=== PATIENT | female | born 1960 | race Caucasian/White ===

== ENCOUNTER 2024-06-24 21:34 | Emergency (ER) | payer BC ==
[2024-06-24 21:40] VITALS: RESP 18
[2024-06-24] MEDS: HYDROmorphone 1 MG/ML 1 ML SYRINGE IVP STA ×2 (21:45→23:27)
[2024-06-24 22:10] LABS: Basophils % (A) 0 %; Eosinophils # (A) 0.1 k/uL (0-0.7); Eosinophils % (A) 1 %; HCT 33.7 % (34.0-46.0); Hypochromasia Slight; Lymphocytes # (A) 1.4 k/uL (1.0-4.8); Lymphocytes % (A) 18 %; MCH 28.9 pg (25.0-35.0); MCHC 32.6 g/dL (31.0-37.0); MCV 88.6 fL (80.0-100.0); Mean Platelet Volume 7.5; Monocytes # (A) 0.4 k/uL (0-1.0); Monocytes % (A) 6 %; Neutrophils # (A) 5.6 k/uL (1.3-7.7); Neutrophils % (A) 73 %; Platelet Count 259 k/uL (150-450); RBC 3.81 m/uL (3.80-5.40); RDW 13.9 % (11.5-15.5); WBC 7.8 k/uL (3.8-10.6)
[2024-06-24 22:32] LABS: INR 0.9 (<1.2); Prothrombin Time 10.4 sec (10.0-12.5)
--- NOTE | 2024-06-24 22:33 | XR ---
EXAM: XR Chest, 1 View CLINICAL HISTORY: ITS.REASON XR Reason: fall TECHNIQUE: Frontal view of the chest. COMPARISON: No relevant prior studies available. FINDINGS: Lungs: 6.9 x 4.1 cm ovoid structure overlying the right lower lobe. No consolidation. Pleural space: Unremarkable. No pneumothorax. Heart: Unremarkable. No cardiomegaly. Mediastinum: Unremarkable. Normal mediastinal contour. Bones/joints: Unremarkable. No acute fracture. Tubes, lines and devices: Left-sided chest port with its tip at the cavoatrial junction. IMPRESSION: 6.9 cm ovoid structure overlying the right lower lobe. While this may represent fluid within the fissure underlying mass cannot be excluded. Dedicated postcontrast chest CT recommended for further evaluation.
--- NOTE | 2024-06-24 22:41 | XR ---
ADDENDUM - Added by Jaime Lockhart MD on 06/26/2024 8:34 PM (-04:00) CLINICAL HISTORY: ITS.REASON XR Reason: fall TECHNIQUE: Frontal and lateral views of the left femur. COMPARISON: No relevant prior studies available. FINDINGS: Bones/joints: Comminuted displaced fracture involving the proximal third of the femoral diaphysis. Soft tissues: Unremarkable. IMPRESSION: As above. EXAM: XR Left Femur, 2 Views CLINICAL HISTORY: ITS.REASON XR Reason: fall TECHNIQUE: Frontal and lateral views of the left femur. COMPARISON: No relevant prior studies available. FINDINGS: Bones/joints: Expansile lytic appearance to the base of the second proximal phalanx may be posttraumatic in nature. Comminuted displaced intra-articular fracture of the distal radius. Minimally displaced ulnar styloid fracture. Soft tissues: Unremarkable. IMPRESSION: As above.
--- NOTE | 2024-06-24 22:49 | ED ---
General Adult HPI - General Chief complaint: Fall Stated complaint: fall Time Seen by Provider: 06/24/24 21:35 Source: patient, EMS, RN notes reviewed, old records reviewed Mode of arrival: EMS Limitations: no limitations - History of Present Illness Initial comments: 64-year-old female with sudden onset left leg pain while bending over. Patient has known metastatic lung cancer for which she has received radiation and treatment at [facility] in [place]. Patient states she was bending over and felt a sudden pop in the mid thigh left leg. She also landed on her left wrist. 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 No head or neck trauma. - Related Data Home Medications Medication Instructions Recorded Confirmed Buprenorphine HCl/Naloxone HCl 0.5 film SL DAILY 04/24/16 04/24/16 [Suboxone 8 mg-2 mg Sl Film] Allergies Allergy/AdvReac Type Severity Reaction Status Date / Time Penicillins Allergy Unknown Verified 04/24/16 10:29 Childhood Review of Systems ROS Statement: Those systems with pertinent positive or pertinent negative responses have been documented in the HPI. ROS Other: All systems not noted in ROS Statement are negative. Past Medical History Past Medical History: No Reported History Additional Past Medical History / Comment(s): Stage 4 bone CA DX 04/2024 , radiation History of Any Multi-Drug Resistant Organisms: None Reported Past Surgical History: Section, Cholecystectomy Additional Past Surgical History / Comment(s): Port placement. Past Psychological History: PTSD Smoking Status: Former smoker Past Alcohol Use History: Occasional Past Drug Use History: Marijuana General Exam Limitations: no limitations General appearance: alert, in no apparent distress Head exam: Present: atraumatic, normocephalic Eye exam: Present: normal appearance, PERRL Neck exam: Present: normal inspection. Absent: tenderness Respiratory exam: Present: normal lung sounds bilaterally. Absent: respiratory distress, wheezes Cardiovascular Exam: Present: regular rate, normal rhythm GI/Abdominal exam: Present: soft. Absent: distended, tenderness, guarding Extremities exam: Present: other (Left wrist, tenderness and deformity noted with swelling to the hand and distal wrist. Left leg is externally rotated, shortened, distal pulses are intact. Any movement causes severe pain.) Neurological exam: Present: alert, oriented X3 Psychiatric exam: Present: normal affect, normal mood Course Vital Signs 06/24/24 21:36 Temperature 97.6 F Pulse Rate 106 H Respiratory 18 Rate Blood Pressure 146/81 O2 Sat by Pulse 99 Oximetry Procedures - Orthopedic Splinting/Casting Injury #1 Side: left Upper Extremity Injury Location: wrist Upper Extremity Immobilizer: volar splint Medical Decision Making - Medical Decision Making Was pt. sent in by a medical professional or institution ([facility], CLERICAL SUPPORT, urgent care, hospital, or [facility]...) When possible be specific @ -No Did you speak to anyone other than the patient for history (EMS, parent, family, police, friend...)? What history was obtained from this source @ -No Did you review nursing and triage notes (agree or disagree)? Why? @ -I reviewed and agree with nursing and triage notes Were old charts reviewed (outside hosp., previous admission, EMS record, old EKG, old radiological studies, urgent care reports/EKG's, [facility] records)? Report findings @ -No old charts were reviewed Differential Musculoskeletal Muscular strain, contusion, ligament sprain, fracture, arthritis, septic arthritis, bursitis, cellulitis, muscle spasm, nerve compression, DVT, arterial occlusion, herpes zoster, electrolyte abnormality, tumor.... This is not meant to be in all inclusive list] EKG interpreted by me (3pts min.). @ -As above X-rays interpreted by me (1pt min.). @ -X-rays performed of the left wrist, left femur: Nondisplaced distal radius fracture as well as ulnar styloid fracture. Patient has a midshaft femur fracture. CT interpreted by me (1pt min.). @ -None done U/S interpreted by me (1pt. min.). @ -None done What testing was considered but not performed or refused? (CT, X-rays, U/S, labs)? Why? @ -None What meds were considered but not given or refused? Why? @ -None Did you discuss the management of the patient with other professionals (professionals i.e. [facility] Carbajal, CLERICAL SUPPORT, lab, RT, psych nurse, social science research assistant, neck cutter, teacher, gifts officer, window caser)? Give summary @ -Discussed with Dr. Cho at [facility] in [place] for transfer for continuity of care. Was smoking cessation discussed for >3mins.? @ -No Was critical care preformed (if so, how long)? @ -No Were there social determinants of health that impacted care today? How? (Homelessness, low income, unemployed, alcoholism, drug addiction, transportation, low edu. Level, literacy, decrease access to med. care, half-way, rehab)? @ -No Was there de-escalation of care discussed even if they declined (Discuss DNR or withdrawal of care, Hospice)? DNR status @ -No What co-morbidities impacted this encounter? (DM, HTN, Smoking, COPD, CAD, Cancer, CVA, ARF, Chemo, Hep., AIDS, mental health diagnosis, sleep apnea, morbid obesity)? @ -Metastatic lung cancer Was patient admitted / discharged? Hospital course, mention meds given and route, prescriptions, significant lab abnormalities, going to OR and other pertinent info. @ -64-year-old female with pathological fracture to the left femur and nondisplaced distal radius fracture on the left. Patient has received her care at [facility] in [place] and request transfer for continuity of care. Patient's pain is controlled, transfer is arranged. Undiagnosed new problem with uncertain prognosis? @ -No Drug Therapy requiring intensive monitoring for toxicity (Heparin, Nitro, Insulin, Cardizem)? @ -No Were any procedures done? @ -[Yes, splinting of the left wrist. Diagnosis/symptom? @ -Midshaft femur fracture on the left, left distal radius fracture Acute, or Chronic, or Acute on Chronic? @ -Acute Uncomplicated (without systemic symptoms) or Complicated (systemic symptoms)? @ -Default Side effects of treatment? @ -No Exacerbation, Progression, or Severe Exacerbation? @ -No Poses a threat to life or bodily function? How? (Chest pain, [place], [place], pneumonia, PE, COPD, DKA, ARF, appy, cholecystitis, CVA, Diverticulitis, Homicidal, Suicidal, threat to staff... and all critical care pts) @ -[Yes, femur fracture, metastatic cancer - Lab Data Result diagrams: 06/24/24 21:51 Lab Results 06/24/24 Range/Units 21:51 WBC 7.8 (3.8-10.6) k/uL RBC 3.81 (3.80-5.40) m/uL Hgb 11.0 L (11.4-16.0) gm/dL Hct 33.7 L (34.0-46.0) % MCV 88.6 (80.0-100.0) fL MCH 28.9 (25.0-35.0) pg MCHC 32.6 (31.0-37.0) g/dL RDW 13.9 (11.5-15.5) % Plt Count 259 (150-450) k/uL MPV 7.5 Neutrophils % 73 % Lymphocytes % 18 % Monocytes % 6 % Eosinophils % 1 % Basophils % 0 % Neutrophils # 5.6 (1.3-7.7) k/uL Lymphocytes # 1.4 (1.0-4.8) k/uL Monocytes # 0.4 (0-1.0) k/uL Eosinophils # 0.1 (0-0.7) k/uL Basophils # 0.0 (0-0.2) k/uL Hypochromasia Slight Disposition Clinical Impression: Fall, Femur fracture, left, Wrist fracture, left Disposition: OTHER INSTITUTION NOT DEFINED Condition: Stable Is patient prescribed a controlled substance at d/c from ED?: No Referrals: Javi Hood MD [Primary Care Provider] - 1-2 days Time of Disposition: 22:48 - Out of Hospital Transfer - Req. Specs Out of Hospital Transfer - Requested Specifics: Other Emergency Center ([facility])
[2024-06-24 22:53] LABS: ALT 12 U/L (4-34); AST 29 U/L (14-36); African American GFR (CKD) >90 (>60 ml/min/1.73 sqM); Albumin 3.6 g/dL (3.5-5.0); Alkaline Phosphatase 185 U/L (38-126); Anion Gap 10 mmol/L; Blood Urea Nitrogen 7 mg/dL (7-17); Calcium 9.3 mg/dL (8.4-10.2); Carbon Dioxide 24 mmol/L (22-30); Chloride 100 mmol/L (98-107); Glucose 125 mg/dL (74-99); Non-African American GFR(CKD) >90 (>60 ml/min/1.73 sqM); Potassium 3.5 mmol/L (3.5-5.1); Sodium 134 mmol/L (137-145); Total Bilirubin 0.5 mg/dL (0.2-1.3); Total Protein 6.1 g/dL (6.3-8.2)
--- NOTE | 2024-06-24 22:54 | XR ---
ADDENDUM - Added by Jaime Lockhart MD on 06/26/2024 8:32 PM (-04:00) EXAM: XR Left Hand Complete, 3 or More Views CLINICAL HISTORY: ITS.REASON XR Reason: fall TECHNIQUE: Frontal, lateral and oblique views of the left hand. COMPARISON: No relevant prior studies available. FINDINGS: Bones/joints: Comminuted displaced intra-articular fracture of the distal radius. Nondisplaced fracture of the ulnar styloid. There is expansile lytic lesion involving the base of the second proximal phalanx. No dislocation. Mild degenerative changes of the interphalangeal joints Soft tissues: Unremarkable. No radiopaque foreign body. IMPRESSION: Comminuted displaced intra-articular fractures of the distal radius. Nondisplaced fracture of the ulnar styloid Expansile lytic lesion involving the base of the second proximal phalanx may be posttraumatic in nature. MRI of the hand may be obtained for further evaluation EXAM: XR Left Hand Complete, 3 or More Views CLINICAL HISTORY: ITS.REASON XR Reason: fall TECHNIQUE: Frontal, lateral and oblique views of the left hand. COMPARISON: No relevant prior studies available. FINDINGS: Bones/joints: Comminuted displaced intra-articular fracture of the distal radius. Nondisplaced fracture of the ulnar styloid. There is expansile lytic lesion involving the base of the second proximal phalanx. No dislocation. Soft tissues: Unremarkable. No radiopaque foreign body. IMPRESSION: Comminuted displaced intra-articular fractures of the distal radius. Nondisplaced fracture of the ulnar styloid Expansile lytic lesion involving the base of the second proximal phalanx may be posttraumatic in nature. MRI of the head may be obtained for further evaluation
[2024-06-24 22:57] LABS: Partial Thromboplastin Time 21.1 sec (22.0-30.0)
[2024-06-24] MEDS: KETAMINE 10 MG/ML 20 ML VIAL IV ONE (23:45)
[2024-06-24 23:54] VITALS: BP 122/71; PULSE 114; TEMP 98.2
== END 2024-06-24 23:55 | disposition other institution (70) ==
LOC: EC 21:34
CPT/HCPCS: 29125; 36415; 71045; 80053; 85025; 85610; 85730; 96374; 96376; 99285